=== PATIENT | female | born 1995 ===

== ENCOUNTER 2017-01-18 08:55 | Emergency (ER) | payer SELFPAY ==
[2017-01-18 09:03] VITALS: BMI 26.5
[2017-01-18 09:05] VITALS: BP 128/78; PULSE 92; RESP 20; TEMP 97; O2SAT 98
--- NOTE | 2017-01-18 10:16 | RAD ---
PROCEDURE: Left Foot Radiographs. HISTORY: nail injury COMPARISON: None available. FINDINGS: BONES: Linear lucency noted at the proximal 4th digit appears to reflect vascular groove rather than nondisplaced fracture; correlate with physical exam. Remainder the visualized osseous structures appear unremarkable without acute displaced fracture identified. JOINTS: No dislocation. SOFT TISSUES: No evidence of radiopaque foreign body. OTHER FINDINGS: None. IMPRESSION: Linear lucency noted at the proximal 4th digit appears to reflect vascular groove rather than nondisplaced fracture; correlate with physical exam.
--- NOTE | 2017-01-18 11:04 | ED PDOC ---
Lower Extremity Pain/Injury Time Seen by Provider: 01/18/17 09:29 Chief Complaint (Nursing): Lower Extremity Problem/Injury Chief Complaint (Provider): Lower extremity injury History Per: Patient History/Exam Limitations: no limitations Onset/Duration Of Symptoms: Days (x3) Current Symptoms Are (Timing): Still Present Additional Complaint(s): Ramon Marcus is a 21 year old female, with a past medical history of gastritis and asthma, who presents to the emergency department complaining of left foot pain onset for 3 days. Patient reports that she stepped on nail outside on Tuesday morning. Nail went through the show and left foot. She is complaining of pain on the sole of the left foot when she walks. She has not seen a doctor. Patient is not taking any pain medications. She doesn't remember last tetanus shot. She denies any fever or chills. No other medical complaints. Past Medical History Reviewed: Historical Data, Nursing Documentation, Vital Signs Vital Signs: Last Vital Signs Temp 97 F L 01/18/17 09:03 Pulse 92 H 01/18/17 09:03 Resp 20 01/18/17 09:03 BP 128/78 01/18/17 09:03 Pulse Ox 98 01/18/17 09:03 - Medical History PMH: Asthma, Gastritis - Family History Family History: States: Unknown Family Hx - Home Medications Home Medications: Ambulatory Orders Medication Instructions Recorded Dicyclomine [Bentyl] 20 mg PO TID #30 tab 12/27/15 Ondansetron [Zofran] 4 mg PO Q8H #12 tab 12/27/15 Ciprofloxacin HCl [Cipro] 500 mg PO BID #14 tablet 01/18/17 - Allergies Allergies/Adverse Reactions: Allergies Allergy/AdvReac Type Severity Reaction Status Date / Time shrimp Allergy SWELLING Verified 12/27/15 17:49 Review of Systems ROS Statement: Except As Marked, All Systems Reviewed And Found Negative Constitutional: Negative for: Fever, Chills Musculoskeletal: Positive for: Foot Pain (left foot sole wound) Physical Exam - Reviewed Nursing Documentation Reviewed: Yes Vital Signs Reviewed: Yes - Physical Exam Appears: Positive for: Well, Non-toxic, No Acute Distress Head Exam: Positive for: ATRAUMATIC, NORMAL INSPECTION, NORMOCEPHALIC Skin: Positive for: Normal Color, Warm, Dry Eye Exam: Positive for: EOMI, Normal appearance, PERRL Neck: Positive for: Normal, Painless ROM, Supple Extremity: Positive for: Other (healing puncture wound on left foot w/ redness around wound. No foregin bodies or discharge.). Negative for: Tenderness (left sole foot), Swelling (left sole foot) Neurologic/Psych: Positive for: Alert, Oriented - ECG O2 Sat by Pulse Oximetry: 98 (RA) Pulse Ox Interpretation: Normal Medical Decision Making Medical Decision Making: Initial Impression: Puncture wound of the left foot. Initial Plan: --Adacel 0.5 ml IM --Foot left 3 views routine [RAD] --reevaluation 1014 Foot X-Ray FINDINGS: BONES: Linear lucency noted at the proximal 4th digit appears to reflect vascular groove rather than nondisplaced fracture; correlate with physical exam. Remainder the visualized osseous structures appear unremarkable without acute displaced fracture identified. JOINTS: No dislocation. SOFT TISSUES: No evidence of radiopaque foreign body. OTHER FINDINGS: None. IMPRESSION: Linear lucency noted at the proximal 4th digit appears to reflect vascular groove rather than nondisplaced fracture; correlate with physical exam. Scribe Attestation: Documented by Swapnil Hilliard, acting as a scribe for Bo Lazaro MD Provider Scribe Attestation: All medical record entries made by the Scribe were at my direction and personally dictated by me. I have reviewed the chart and agree that the record accurately reflects my personal performance of the history, physical exam, medical decision making, and the department course for this patient. I have also personally directed, reviewed, and agree with the discharge instructions and disposition. Disposition - Clinical Impression Clinical Impression: Puncture wound of left foot - Patient ED Disposition Is Patient to be Admitted: No Doctor Will See Patient In The: Office Counseled Patient/Family Regarding: Studies Performed, Diagnosis, Need For Followup - Disposition Referrals: Podiatry Clinic [Outside] Disposition: Routine/Home Disposition Time: 11:46 Additional Instructions: Take medications as instructed. Follow up with your PCP in 2 -3 days Prescriptions: Ciprofloxacin HCl [Cipro] 500 mg PO BID #14 tablet Instructions: Puncture Wound (ED) Forms: [facility] ED School/Work Excuse
== END 2017-01-18 11:58 | disposition home or self-care (01) ==
LOC: H.ER 08:55
DX: S91.332A Puncture wound without foreign body, left foot, initial encounter (principal); W26.8XXA Contact with other sharp object(s), not elsewhere classified, initial encounter; Y92.89 Other specified places as the place of occurrence of the external cause; J45.909 Unspecified asthma, uncomplicated